=== PATIENT | male | born 1990 | race Caucasian/White ===

== ENCOUNTER 2023-05-01 21:53 | Observation (INO) | payer SELFPAY ==
[2023-05-02 00:41] LABS: APPEARANCE,URINE CLEAR; BILIRUBIN,URINE NEGATIVE (NEGATIVE); COLOR,URINE YELLOW; GLUCOSE,URINE NEGATIVE (NEGATIVE); KETONES,URINE 15 mg/dL (NEGATIVE); LEUKOCYTE ESTERASE,URINE NEGATIVE (NEGATIVE); NITRITE,URINE NEGATIVE (NEGATIVE); OCCULT BLOOD,URINE TRACE-INTACT (NEGATIVE); PH,URINE 6.5 (5.0-8.0); PROTEIN,URINE NEGATIVE (NEGATIVE); UROBILINOGEN,URINE 0.2 EU/dL (<2.0)
[2023-05-02 00:49] LABS: AMPHETAMINES SCREEN, URINE NEGATIVE (CUTOFF=500); BARBITURATE SCREEN,URINE NEGATIVE (CUTOFF=200); BENZODIAZEPINES SCREEN,URINE NEGATIVE (CUTOFF=150); BUPRENORPHINE SCREEN,URINE NEGATIVE (CUTOFF=10); METHADONE SCREEN, URINE NEGATIVE (CUTOFF=200); METHAMPHETAMINES SCREEN, URINE NEGATIVE (CUTOFF=500); OXYCODONE SCREEN,URINE NEGATIVE (CUT0FF=100); PCP SCREEN,URINE NEGATIVE (CUTOFF=25); PROPOXYPHENE SCREEN,URINE NEGATIVE (CUTOFF=300); THC SCREEN,URINE 20 NG/ML NEGATIVE (CUTOFF=50)
[2023-05-02 01:23] LABS: BACTERIA,URINE RARE (NEGATIVE); EPITHELIAL CELLS,URINE RARE (NONE-FEW); RBC,URINE 0-1 (0-2/HPF); WBC,URINE 0-1 (0-5/HPF)
[2023-05-02 01:45] LABS: A/G RATIO 1.7 (0.9-1.6); ACETAMINOPHEN <2.0 ug/mL; ALANINE AMINOTRANSFERASE,ALT 53 IU/L (14-63); ALKALINE PHOSPHATASE 84 U/L (46-116); ASPARTATE AMNIOTRANSFERASE,AST 85 IU/L (15-37); BLOOD UREA NITROGEN,BUN 17 mg/dL (7.0-18.0); CALCIUM 9.3 mg/dL (8.5-10.1); CARBON DIOXIDE,CO2 26.4 mmol/L (21.0-32.0); CHLORIDE,CL 87 mmol/L (98-107); CREATININE 1.1 mg/dL (0.8-1.3); EST CRCL DRUG DOSING (CG) 111.05 mL/min; GLUCOSE RANDOM 89 mg/dL (74-106); POTASSIUM,K 3.1 mmol/L (3.5-5.1); SALICYLATE <0.2 mg/dL (0.0-20.0); SODIUM,NA 125 mmol/L (136-148)
[2023-05-02 01:48] LABS: ESTIMATED GFR 91 mL/min (>60); ETHANOL BLOOD MEDICAL < 3.0 mg/dL
[2023-05-02 02:51] LABS: HEMATOCRIT 38.9 % (42.0-52.0); HEMOGLOBIN 15.1 g/dL (14.0-18.0); MEAN CORPUSCULAR HEMOGLOBIN 33.2 pg (28.0-32.0); MEAN CORPUSCULAR HGB CONC 38.8 g/dL (32.0-36.0); MEAN CORPUSCULAR VOLUME 85.5 fL (83.0-99.0); MEAN PLATELET VOLUME 10.7 fL (9.4-12.4); PLATELET COUNT,PLT 146 K/uL (150-400); RED BLOOD CELL COUNT 4.55 M/uL (4.52-5.90); WHITE BLOOD CELL COUNT,WBC 14.96 K/uL (3.9-11.3)
[2023-05-02 03:10] LABS: SEG NEUTROPHILS ABSOLUTE MAN 11.4 (1.4-5.7); SEG NEUTROPHILS PERCENT MAN 76 % (48.0-80.0)
[2023-05-02 03:12] LABS: LYMPHOCYTES ABSOLUTE MAN 2.1 (0.6-2.4); LYMPHOCYTES PERCENT MAN 14 % (16.0-40.0); MONOCYTES ABSOLUTE MAN 1.5 (0.0-0.8); MONOCYTES PERCENT MAN 10 % (0.0-15.0)
[2023-05-02] MEDS ORDERED: LORazepam 2 MG/ML SDV IVPUSH STA (04:27)
[2023-05-02] MEDS ORDERED: Lidocaine 1% 5 ML VIAL ONE (05:01)
[2023-05-02] MEDS ORDERED: Lidocaine 1% 5 ML VIAL INJECT ONE (05:20)
[2023-05-02] MEDS ORDERED: SODIUM CHLORIDE 0.9% IV STA (05:21)
[2023-05-02] MEDS ORDERED: ACYCLOVIR IV STA (05:21)
[2023-05-02] MEDS ORDERED: cefTRIAXone 2 GM in Sodium Chloride 0.9% 50 ML IV ONE (05:22)
[2023-05-02 07:43] LABS: APPEARANCE CSF CLEAR; COLOR,CSF COLORLESS
[2023-05-02 07:44] LABS: RBC,CSF 2 /uL (0-0); WBC,CSF 1 /uL (0-5)
[2023-05-02 08:28] LABS: MONONUCLEAR, CSF 100; POLYMORPHONUCLEAR, CSF 0
[2023-05-02] MEDS ORDERED: Ondansetron 4 MG/2 ML SDV IVPUSH PRN (11:53)
[2023-05-02] MEDS ORDERED: Acetaminophen 325 MG Tab PO PRN (11:53)
[2023-05-02] MEDS ORDERED: Potassium Chloride 20 MEQ Tab.ER PO ONE ×2 (12:01→14:51)
[2023-05-02] MEDS ORDERED: Sodium Chloride 0.9% 1,000 ML IV ONE (12:04)
[2023-05-02] MEDS ORDERED: Sodium Chloride 0.9% 1,000 ML IV SCH (14:00)
[2023-05-02] MEDS ORDERED: LORazepam 2 MG/ML SDV IVPUSH PRN (14:39)
[2023-05-02 14:45] LABS: A/G RATIO 1.3 (0.9-1.6); BILIRUBIN TOTAL 1.7 mg/dL (0.2-1.0); CALCIUM 8.6 mg/dL (8.5-10.1); CARBON DIOXIDE,CO2 27.9 mmol/L (21.0-32.0); CREATININE 0.9 mg/dL (0.8-1.3); EST CRCL DRUG DOSING (CG) 135.15 mL/min; HEMATOCRIT 37.5 % (42.0-52.0); HEMOGLOBIN 13.5 g/dL (14.0-18.0); MEAN CORPUSCULAR HEMOGLOBIN 31.8 pg (28.0-32.0); MEAN CORPUSCULAR VOLUME 88.2 fL (83.0-99.0); PLATELET COUNT,PLT 131 K/uL (150-400); POTASSIUM,K 3.2 mmol/L (3.5-5.1); WHITE BLOOD CELL COUNT,WBC 7.65 K/uL (3.9-11.3)
[2023-05-02 14:46] LABS: BASOPHILS ABSOLUTE AUTO 0.03 K/uL (0.00-0.20); BASOPHILS PERCENT AUTO 0.4 % (0.0-1.0); EOSINOPHILS ABSOLUTE AUTO 0.09 K/uL (0.00-0.45); EOSINOPHILS PERCENT AUTO 1.2 % (0.0-6.0); IMMATURE GRAN ABSOLUTE AUTO 0.01 K/uL (0.00-0.05); IMMATURE GRAN PERCENT AUTO 0.1 % (0.0-0.4); LYMPHOCYTES ABSOLUTE AUTO 0.95 K/uL (1.00-4.80); LYMPHOCYTES PERCENT AUTO 12.4 % (24.0-44.0); MONOCYTES ABSOLUTE AUTO 0.89 K/uL (0.00-0.80); MONOCYTES PERCENT AUTO 11.6 % (0.0-8.0); NEUTROPHILS ABSOLUTE AUTO 5.68 K/uL (1.80-7.70); NEUTROPHILS PERCENT AUTO 74.3 % (41.0-71.0); RED BLOOD CELL COUNT 4.25 M/uL (4.52-5.90)
[2023-05-02] MEDS ORDERED: Thiamine 100 MG in Sodium Chloride 0.9% 100 ML IV SCH (15:15)
[2023-05-02] MEDS ORDERED: Folic Acid 1 MG/0.2 ML UD Syringe IV SCH (15:15)
[2023-05-02 15:29] LABS: MEAN PLATELET VOLUME 10.7 fL (9.4-12.4)
[2023-05-02] MEDS ORDERED: Thiamine 200 MG/2 ML MDV IV SCH (15:45)
[2023-05-02] MEDS ORDERED: Pantoprazole 40 MG in Sodium Chloride 0.9% 10 ML IVPUSH SCH (17:00)
== END 2023-05-02 17:55 | disposition home or self-care (01) ==
LOC: MW.ED 21:53 → MW.MS 05-02 06:52
PROVIDERS: ADMIT Family Medicine; ATTEND Family Medicine
DX: R55 Syncope and collapse (principal); R44.0 Auditory hallucinations; F10.10 Alcohol abuse, uncomplicated; E87.1 Hypo-osmolality and hyponatremia; D72.829 Elevated white blood cell count, unspecified; F17.210 Nicotine dependence, cigarettes, uncomplicated; Z79.899 Other long term (current) drug therapy; Z20.822 Contact with and (suspected) exposure to COVID-19; Y90.0 Blood alcohol level of less than 20 mg/100 ml
CPT/HCPCS: 36415; 62270; 70450; 71045; 80053; 80143; 80179; 80305; 80307; 81001; 82945; 83735; 84157; 85025; 86788; 86789; 87070; 87205; 87635; 89050; 93005; 96365; 96367; 96375; 99285; A9270; J0133; J0696; J2060; J3411; J3490; J7030; J7050; 93010; 96361; 99284; G0378; U0002

== ENCOUNTER 2023-06-12 09:27 | Emergency (ER) | payer BC ==
[2023-06-12] MEDS ORDERED: OLANZapine 5 MG Tab.DIS PO ONE (09:48)
[2023-06-12 09:56] LABS: BASOPHILS ABSOLUTE AUTO 0.04 K/uL (0.00-0.20); BASOPHILS PERCENT AUTO 0.4 % (0.0-1.0); EOSINOPHILS ABSOLUTE AUTO 0.05 K/uL (0.00-0.45); EOSINOPHILS PERCENT AUTO 0.5 % (0.0-6.0); HEMATOCRIT 45.1 % (42.0-52.0); HEMOGLOBIN 16.7 g/dL (14.0-18.0); IMMATURE GRAN ABSOLUTE AUTO 0.02 K/uL (0.00-0.05); IMMATURE GRAN PERCENT AUTO 0.2 % (0.0-0.4); LYMPHOCYTES PERCENT AUTO 9.6 % (24.0-44.0); MEAN CORPUSCULAR HEMOGLOBIN 32.7 pg (28.0-32.0); MEAN CORPUSCULAR VOLUME 88.4 fL (83.0-99.0); MEAN PLATELET VOLUME 10.5 fL (9.4-12.4); MONOCYTES ABSOLUTE AUTO 0.78 K/uL (0.00-0.80); MONOCYTES PERCENT AUTO 7.5 % (0.0-8.0); NEUTROPHILS ABSOLUTE AUTO 8.55 K/uL (1.80-7.70); NEUTROPHILS PERCENT AUTO 81.8 % (41.0-71.0); PLATELET COUNT,PLT 193 K/uL (150-400); WHITE BLOOD CELL COUNT,WBC 10.44 K/uL (3.9-11.3)
[2023-06-12 10:05] LABS: COLOR,URINE YELLOW; GLUCOSE,URINE NEGATIVE (NEGATIVE); KETONES,URINE 15 mg/dL (NEGATIVE); LEUKOCYTE ESTERASE,URINE SMALL (NEGATIVE); NITRITE,URINE NEGATIVE (NEGATIVE); OCCULT BLOOD,URINE NEGATIVE (NEGATIVE); PROTEIN,URINE TRACE mg/dL (NEGATIVE)
[2023-06-12 10:07] LABS: APPEARANCE,URINE SLT CLOUDY; BILIRUBIN,URINE MODERATE (NEGATIVE)
[2023-06-12 10:12] LABS: BACTERIA,URINE FEW (NEGATIVE); EPITHELIAL CELLS,URINE NOT SEEN (NONE-FEW); MUCUS,URINE LIGHT (NONE-MOD); RBC,URINE 0-2 (0-2/HPF); WBC,URINE 0-2 (0-5/HPF)
[2023-06-12 10:15] LABS: AMPHETAMINES SCREEN, URINE NEGATIVE (CUTOFF=500); BARBITURATE SCREEN,URINE NEGATIVE (CUTOFF=200); BENZODIAZEPINES SCREEN,URINE NEGATIVE (CUTOFF=150); BUPRENORPHINE SCREEN,URINE NEGATIVE (CUTOFF=10); METHADONE SCREEN, URINE NEGATIVE (CUTOFF=200); METHAMPHETAMINES SCREEN, URINE NEGATIVE (CUTOFF=500); OXYCODONE SCREEN,URINE NEGATIVE (CUT0FF=100); PCP SCREEN,URINE NEGATIVE (CUTOFF=25); THC SCREEN,URINE 20 NG/ML NEGATIVE (CUTOFF=50)
[2023-06-12 10:32] LABS: A/G RATIO 1.5 (0.9-1.6); ACETAMINOPHEN <2.0 ug/mL; ALANINE AMINOTRANSFERASE,ALT 31 IU/L (14-63); ALKALINE PHOSPHATASE 96 U/L (46-116); ASPARTATE AMNIOTRANSFERASE,AST 30 IU/L (15-37); BILIRUBIN TOTAL 1.4 mg/dL (0.2-1.0); BLOOD UREA NITROGEN,BUN 16 mg/dL (7.0-18.0); CALCIUM 10.4 mg/dL (8.5-10.1); CARBON DIOXIDE,CO2 24.9 mmol/L (21.0-32.0); CHLORIDE,CL 97 mmol/L (98-107); EST CRCL DRUG DOSING (CG) 101.11 mL/min; ESTIMATED GFR 102 mL/min (>60); ETHANOL BLOOD MEDICAL < 3.0 mg/dL; GLUCOSE RANDOM 97 mg/dL (74-106); MAGNESIUM 1.8 mg/dL (1.8-2.4); PROTEIN TOTAL,TP 8.4 g/dL (6.4-8.2); SALICYLATE < 0.2 mg/dL (0.0-20.0); SODIUM,NA 135 mmol/L (136-148); TSH ULTRASENSITIVE 1.55 uIU/mL (0.36-3.74)
== END 2023-06-12 13:06 ==
LOC: MW.ED 09:27
DX: R44.0 Auditory hallucinations (principal); Z20.822 Contact with and (suspected) exposure to COVID-19
CPT/HCPCS: 36415; 80053; 80143; 80179; 80305; 80307; 81001; 83735; 84443; 85025; 87635; 99285; A9270; U0002